=== PATIENT | female | born 1965 | race Caucasian/White ===

== ENCOUNTER → 2019-03-30 | Outpatient (CLI) | payer OTHER ==
[~2019-03-30] MED LIST: ALBU90OI; ALPR1 PO; CROMOI; NAPR550 PO; OXYACE5T PO
[2019-03-31 14:16] LABS: Stool Occult Bld Immuno 1 Positive (NEGATIVE)
== END | disposition home or self-care (01) ==
LOC: LAB SHORT 09:30 → LAB 09:30
PROVIDERS: Family Medicine
DX: Z12.11 Encounter for screening for malignant neoplasm of colon (principal)
CPT/HCPCS: G0328

== ENCOUNTER 2019-06-01 07:02 | Day surgery (SDC) | payer OTHER ==
[~2019-06-01] VITALS: Ht 170.2 cm; Wt 150.5 kg
[~2019-06-01 07:02] MED LIST changes: -ALBU90OI; +ALBU90OI INH; +Methimazole5 MG PO
--- NOTE | 2019-06-01 07:56 | NUR ---
Ambulatory in Day SurgeryPatient states colon prep results clear. History, Chart, Medications and Allergies reviewed before start of procedure.Lungs clear T/O to Auscultation. Patient confirms NPO status and agrees with scheduled surgery. Patient States Post-Procedure ride home has been arranged.
--- NOTE | 2019-06-01 08:43 | NUR ---
06/01/[address] HERE TO PROVIDE ANESTHESIA CARE, PLEASE SEE ANESTHESIA RECORD FOR DETAILS. History, Chart, Medications and Allergies reviewed before start of procedure. Patient confirms NPO status and agrees with scheduled surgery. Patient states colon prep results clear. MONITOR INTACT WITH CONTINUOUS PULSE OXIMETRY AND INTERMITTENT BP. O2 VIA N/C INTACT THROUGHOUT SEDATION/PROCEDURE VIA NON-REBREATHER AT [address] GODINEZ REQUEST.
--- NOTE | 2019-06-01 09:31 | NUR ---
Discharge instructions reviewed with patient. Patient verbalizes understanding. Copy given to patient to take home. PT FORGETFUL AT TIMES, ASKING REPEATED QUESTIONS, THEN REMEMBERING ANSWERS, PT STEADY ON FEET, Discharged via wheelchair to private car for ride home.
== END 2019-06-01 23:14 | disposition home or self-care (01) ==
LOC: ORSCMMR 07:02 → ORD 08:30 → ORSCMMR 08:30
PROVIDERS: Internal Medicine Gastroenterology
PROC: 0DBK8ZX Excision of Ascending Colon, Via Natural or Artificial Opening Endoscopic, Diagnostic (ICD-10-PCS; principal; 2019-06-01 08:30)
DX: R19.5 Other fecal abnormalities (principal); K57.30 Diverticulosis of large intestine without perforation or abscess without bleeding; K64.8 Other hemorrhoids; D12.0 Benign neoplasm of cecum; D12.2 Benign neoplasm of ascending colon; G47.33 Obstructive sleep apnea (adult) (pediatric); J45.909 Unspecified asthma, uncomplicated; E66.9 Obesity, unspecified; Z68.43 Body mass index [BMI] 50.0-59.9, adult; Z79.899 Other long term (current) drug therapy
CPT/HCPCS: 88305; J2250; J2704; J7120

== ENCOUNTER → 2021-11-04 | Outpatient (CLI) | payer OTHER | LOC: LAB SHORT 08:45 | DX: R93.89 Abnormal findings on diagnostic imaging of other specified body structures (principal) | CPT/HCPCS: 88305 ==

== ENCOUNTER → 2023-07-27 | Outpatient (CLI) | payer OTHER | LOC: PLD 07:56 → LAB SHORT 07:56 | DX: N85.01 Benign endometrial hyperplasia (principal) | CPT/HCPCS: 88305 ==